=== PATIENT | female | born 1995 | race Hispanic/Latino ===

== ENCOUNTER 2016-09-09 19:56 | Inpatient (IN) | payer OTHER ==
[~2016-09-09] VITALS: Ht 167.6 cm; Wt 60.0 kg
[2016-09-09 20:02] VITALS: BP 136/86; PULSE 80; RESP 16; O2SAT 100
--- NOTE | 2016-09-09 22:22 | ED.REPORT ---
HPI-Psychiatric Illness Date of Service September 09, 2016 ED Provider: Linus Carreno MD Patient is a 21 year old female who is 8 weeks who presents to the ED complaining of depression and feeling like she cannot cope with her current situation. She reports she turned to alcohol and marijuana for two years but now that she is , and she has discontinued the alcohol, she does not know how to cope. She is afraid that she might hurt herself or commit suicide ( without a plan) if things continue. She reports she recently thought about driving her car into incoming traffic with her 2 year old in the car. Patient feels like her depression started after she had an about a year ago. She denies hallucinations, homicidal ideations, insomnia, or any other symptoms. She reports she has lost 30 lbs in the past couple of months by not eating. She recently lost her job. She reports she has tried to reach out for help at the [facility] and [facility] but has not had any success. They did not want to prescribe her medication due to her . She saw a provider at [facility] recently who was not helpful to her. She was also seen by [place] psychiatrist today who prescribed things such as laughing regularly and a healthy diet. She found these recommendations extremely frustrating and unhelpful and exacerbated her feelings of self-harm. She reports having been in foster care extensively is a 2-year-old and then finally adopted as a 3-year-old. She says in the past couple of years she has come across documentation that she was given up for adoption because her mother did not want her there she kept 3 other siblings. Nursing Notes Stated Complaint: SELF HARM CONCERNS Chief Complaint: Psychiatric Complaint Nursing Notes Reviewed: Yes Allergies: Coded Allergies: No Known Allergies (Unverified , 09/09/16) General Time Seen by MD: 22:21 Chief Complaint Depressed Hx Obtained From: Patient Arrived By: Walk-in Onset Occurred: More than a week ago... (1 month) Similar Sx Previous: Yes Risk-Psychiatric Illness Suicide Risk Stratification Suicide Risk Factors - Adult: : Alcohol use: Substance abuseNo: Prior psych admission RF Statements: Risk factors reviewed Past Medical History Past Medical History Healthy Denies: Asthma, Diabetes mellitus, Hypertension Past Surgical History Denies Family History Family hx of bipolar disorder Smoking History Unknown if Ever Smoker Social History Was using thc and alcohol daily before finding out she was . Adopted at age 3. Previously in the [place]. is also in [employer]. Drug Use: THC Other Social History: Good social support, Lives with children Ambulatory Status Independent Review of Systems Review of Systems Note: +recent weight loss Psychiatric: Reports: Depression, Suicidal ideation, Denies: Hallucinations, auditory, Hallucinations, visual, Homicidal ideation , Insomnia Complete sys rev & neg: except as marked. Physical Exam Initial Vital Signs Vital Signs (First) Date Time Temp Pulse Resp B/P Pulse Ox O2 Delivery O2 Flow Rate FiO2 09/09/16 20:02 36.6 80 16 136/86 100 Room Air Initial VS: Reviewed, Vital signs normal Head / Eyes: Atraumatic, Normocephalic Neck: Full range of motion Respiratory: Breath sounds normal, Clear to auscultation, No respiratory distress Cardiovascular: Regular rate & rhythm, Heart sounds normal Abdomen / GI: Soft, Non-tender Skin: Warm, Dry General/Constitutional: Awake, Alert, Well developed, Cooperative Neurologic: Oriented X3, Speech NL Psychiatric: Affect NL, Not homicidal, No hallucinations, Cognitive function NL , Judgment/insight NL, Thought content NL Abnormal Mood/Affect: Positive: Depressed, Hopeless Abnormal Thinking / Perception: Positive: Suicidal, no plan Re-Eval/Medical Decision Med Decision/Clinical Course I am very concerned about this young woman. Though she has no concrete plan for suicide, I am concerned about her impulsiveness and desperateness and hopelessness. I believe that inpatient hospitalization is appropriate for this young woman to get her on the right track and save her life. Re-Evaluation/Progress : Time of Eval: 23:34 Re-Evaluation/Progress Note: Discussed plan to keep overnight and see psychiatrist in the morning. Patient understands and agrees with plan. All questions addressed at this time. Consultation : Call Returned at: 23:16 Note: Care Center is at capacity. Counseled Regarding: Diagnosis, Other (Hold overnight ) Discharge & Departure Shift Change Sign-Out Patient Care Transferred: Yes Discussed Complaint(s): Yes Additonal Information: Transfer of care to Dr. Beckwith at 0000. Impression: Primary Impression: Depression with suicidal ideation Discharge Condition All VS Reviewed: Yes Condition: Stable Referrals: LISANDRA DIAZ (PCP) Care Transferred to: To Dr. Beckwith. Care Transferred at: 00:00 Scribe Attestation Portions of this note were transcribed by Dawit Guerrero. I, Dr. Carreno personally performed the history, physical exam and medical decision-making; I reviewed and confirmed the accuracy of the information in the transcribed note. Signed by: Dawit Guerrero 09/09/16, 7041 copies to: [facility] Linus Chao MD September 09, 2016 22:22 DAWIT GUERRERO September 09, 2016 22:29
[2016-09-10 00:26] LABS: BASOPHILS % (AUTO) 0.2 % (0-3); EOSINOPHILS % (AUTO) 0.5 % (0-5); MONOCYTES % (AUTO) 6.7 % (4-12); Mean Corpuscular Hemoglobin 27.8 pg (27.0-35.0); Mean Corpuscular Volume 82.6 fL (81-100); NEUTROPHILS % (AUTO) 68.2 % (40-74); Platelet Count 352 bil/L (150-400)
[2016-09-10 01:01] VITALS: BP 129/79; PULSE 76; RESP 16; O2SAT 100
[2016-09-10 06:48] VITALS: BP 113/62; PULSE 73; RESP 16; O2SAT 100
[2016-09-10 11:00] VITALS: BP 111/71; PULSE 81; RESP 20; O2SAT 98
[2016-09-10 14:20] VITALS: BP 119/69; PULSE 69; RESP 17
--- NOTE | 2016-09-10 16:57 | NUR ---
Nursing admission: Isabella arrived on unit in W/C at 1245 accompanied by transport staff. She is voluntary admission and signed all forms. Ambulatory. Cooperative with admission interview. Depression 09/04. Anxiety "a little". Denied suicidal ideation at 1300 even though she admitted that at time of coming to the ED she felt overwhelmed by theses thoughts as the only way to deal with her stress. Goal for admission : "To find ways to cope so I won't turn to suicide." Feels that although she has sought treatment from the [facility] and another provider recently, she has not received thehelp she needs. STates she neds to deal with childhood issues as well as current stressors: financial problems. job loss, and current which brings up feelings related to an elective termination about a year ago. In High school had some cutting behaviors. Biological family history of mental illness (she was adopted). DEnied any pain or dischomfort of physical problems. Is 8 weeks . First inpatient MH experience. States no meds except zofran, B6, and vitamin. Ate lunch. Worked on crafts in Dining room. Interacted verbally with peers. Plan: [place] to unit. Encourage participation in unit activities. Observe for safety. Addendum: 09/10/16 at 1825 by JHON DOOLEY RN Nursing: Pt met with doctor and was informed of treatment plan. Is engaged in filling out forms in folder and interactive with peers. Pt signed consent to take meds as ordered. Sertraline po administered at 1820. Dr. Garcias informed of dose administered at 1825. P: Assess pt for effects of new med and for participation in unit activities.
[2016-09-10] MEDS ORDERED: Magnesium Hydroxide 10 mL Oral Concentration PO PRN (17:20)
[2016-09-10] MEDS ORDERED: Alum-Mag Hydrox-Simeth 30 mL Suspension PO PRN (17:20)
[2016-09-10] MEDS ORDERED: Benzocaine-Menthol Lozenge 2/Pkg PO PRN (17:20)
--- NOTE | 2016-09-10 19:02 | NUR ---
Obs Dayshift Pt participated in admission, engages well w/ peers, participates in groups. Pt was Oriented, polite, appropriate. Good ADL's, Good meals
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
--- NOTE | 2016-09-11 05:34 | NUR ---
Nursing Noc s/o- has appeared to sleep after 2244 during q 15 minute assessments. a- no apparent distress. p- monitor behavior/emotional state, quality, times and amount of sleep, use and effect of medication.
[2016-09-11 13:13] VITALS: BP 118/72; PULSE 79; RESP 18
--- NOTE | 2016-09-11 13:19 | NUR ---
Nursing Dayshift: S: "My mind was racing with all of these different outcomes to my problems. I couldn't think straight anymore. I didn't want to kill myself. That's why I am here. I was afraid I would kill myself." O: Patient discussing her thought patterns prior to admission. 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 Has been bright and cheery with staff and peers. Eating well at meals. Attending unit activities. Anxiety a 08/05. Depression a -06/07. Denies harmful thoughts and hallucinations. A: Talkative. Improving. P: CPOC. Monitor mood and behavior.
--- NOTE | 2016-09-11 19:34 | NUR ---
Wet Pan Operator/Counselor: S: "I have a smile on my face but I'm sad inside." O: Patient slept 7.25 hours last night as per staff. She denies S/I and H/I. She denies auditory and visual hallucinations. Depression is 8/10 and anxiety is 8/10. A: Patient is cooperative, anxious, tearful at times, overwhelmed, sad. P: Follow the care plan, coordinate with out-patient providers.
--- NOTE | 2016-09-11 21:24 | PCM.PNPSY ---
Subjective Date of Service September 11, 2016 Subjective The patient reports that the CBT worksheets were very helpful in helping her to see her negative thought processes. She reiterated that she did not feel safe enough to rely on worksheets alone and continued to assert the need for antidepressant therapy. Patient reports that family/friends have been supportive. No side effects Sleep:7.25+, very well Appetite: Okay Suicidal and homicidal ideation: denies Auditory hallucinations: denies Visual hallucinations: denies Other Psychotic Symptoms: denies Anxiety: 810 Depression: good/10 to 8-9/10 Current Medications Current Medications Ondansetron HCl 4 mg ONCE ONCE PO Last administered on 09/10/16 08:36; Admin Dose 4 MG; Start 09/10/16 at 08:35; Stop 09/10/16 at 08:36; Status DC Sertraline HCl 25 mg DAILY PO Last administered on 09/11/16 08:43; Admin Dose 25 MG; Start 09/10/16 at 17:20; Stop 09/11/16 at 17:10; Status DC Sertraline HCl 25 mg ONCE ONCE PO Last administered on 09/11/16 17:39; Admin Dose 25 MG; Start 09/11/16 at 17:10; Stop 09/11/16 at 17:14; Status DC Mental Status Exam Appearance: Neat/well groomed Attitude: Pleasant, Cooperative Behavior: Tearful (would appear euthymic then become tearful when discussing inability to cope, suicidal thoughts) Affect: Well Modulated/Appropriate Mood: Depressed Thought Process/Associations: Logical/Sequential, Goal Directed Speech Production: Normal Speech Rate: Normal Speech Articulation: Normal Thought Content: Negativistic, Perseveration Danger to Others: None Hallucinations: Auditory (Denies), Visual (Denies) Consciousness: Alert Orientation: Person, Place ([facility]), Date (September 10, 2016), Situation Memory: Grossly Intact Estimate Intellectual Function: Average Basis for IQ estimate: Awareness current events, Word use/vocabulary, Educational history, Employment history Attention/Concentration & Cogn: Intact Cognitive Testing Method: Abstract Reasoning during interview, Proverb interpretation, Spelling forward & backward Insight: Good Judgement: Good Result Diagram: 09/10/16 0020 09/10/16 0020 Mental Health Plan Patient is 21 year old female with history of chronic depression, more days than not, for many years, reportedly since childhood. She reports depersonalization at times. Although she presents as happy, she states, the bigger I smiled, the worse I'm feeling. She reports decreased appetite which eventually resulted in anorexia, insomnia, low self-esteem, poor concentration and hopelessness. This symptom cluster is consistent with Persistent Depressive Disorder (Dysthymia). She does not appear to have met criteria for major depression or bipolar disorder. The patient has had worsening suicidal thoughts and inability to cope and is concerned for her safety. We discussed that antidepressants are generally contraindicated in unless there is a danger to the mother or fetus and that psychotherapy/CBT is generally considered first line. Unfortunately, the patient had attempted to obtain help but was unable to as outlined in HPI. We discussed the risks and benefits and the patient was presented with CDC guidelines regarding antidepressant use in as well as product information on sertraline as the preferred agent associated with the fewest adverse issues noted in the literature. The patient felt that the risk was greater to not treat than to treat her depression with medication. We also discussed CBT and the patient was given a thought log and instructed on its use and given 2 examples from her own history. The patient reports that she found the CBT worksheets helpful. So far, no side effects from sertraline. If continues without side effects, patient requests discharge tomorrow. [place] AXIS I: Persistent Depressive Disorder Alcohol Use Disorder, in partial remission Marijuana Use Disorder, in partial remission AXIS II: Defer AXIS III: 8-9 weeks . AXIS IV: , marital discord, financial issues. AXIS V: GAF 35 Medications 1. The patient is admitted to the inpatient unit and will be provided a safe and secure environment. 2. The patient is denying current active suicidality and is not in need of a one-to-one at this time. 3. The patient is encouraged to participate with group and milieu activities. 4. The patient will be seen by the treatment team on a daily basis to assess symptoms, side effects and response to treatment. 5. Sertraline 50mg daily. 6. Explore additional resources in the community for potential CBT continuation. 7. Anticipated length of stay is 2-3 days. Prasanna Garcias MD September 11, 2016 21:24 Precautions Ordered: [ ] 1:1, [ ] Sharps, [ ] Assault, [ ] Elopement Treatment Plan for Suicidal Behavior: Other (Specify): Prasanna Garcias MD September 11, 2016 21:24
--- NOTE | 2016-09-11 22:54 | NUR ---
NURS Note Evening S/O "Can I ask . . . is [fellow pt] okay?" Pt appears cheerful and energetic. Pt visited with friends and played music with peers. Interacting appropriately with peers. Denies MARY ELIZABETH. Denies ZOE TREVIZO. A Pleasant, cooperative, and appropriate. P Continue with plan of care.
--- NOTE | 2016-09-12 04:39 | NUR ---
nursing, nights, 11-7 s/o- has appeared to sleep after midnight during q 15 minute assessments. a- no apparent distress. p- monitor behavior/emotional state, quality, times and amount of sleep, use and effect of medication. dylan
[2016-09-12 09:10] VITALS: BP 109/80; PULSE 85; RESP 18
--- NOTE | 2016-09-12 13:57 | NUR ---
Nursing; DAy shift: 0700 through 151. I feel so much better after I spoke with the doctor yesterday. Isabella has been bubbly on the unit this shift States her ronaldo name IS Bubbly. Interacting with peers appropriately. Participating in activities on unit. No complaints. States she feels 95% improved since admission. Is reviewing her written materials and states that her journaling activity is helpful to combat depressed feelings. Anticipating discharge at 1700. Denies any intent to self harm. Is future oriented All outcomes met. P: Prepare for discharge later. Addendum: 09/12/16 at 1404 by JHON DOOLEY RN Amended: Links added.
[2016-09-12] MEDS ORDERED: SERT50TA9 PO (14:52)
--- NOTE | 2016-09-12 14:57 | PCM.DIMED ---
Discharge Instructions Date of Service September 12, 2016 Dates of Hospitalization September 10, 2016 at 12:22 Discharge Diagnosis Discharge Diagnosis AXIS I: Persistent Depressive Disorder Alcohol Use Disorder, in partial remission Marijuana Use Disorder, in partial remission AXIS II: Defer AXIS III: 8-9 weeks . AXIS IV: , marital discord, financial issues. AXIS V: GAF 50 Medication Instructions Continue to use CBT Thought Record worksheets. Test Results CBC Test 09/10/16 00:20 White Blood Count 11.5th/mm3 (3.8-10.1) Red Blood Count 4.13mil/mm3 (3.90-5.20) Hemoglobin 11.5g/dL (12.0-15.6) Hematocrit 34.1% (35.0-46.0) Mean Corpuscular Volume 82.6fL (81-100) Mean Corpuscular Hemoglobin 27.8pg (27.0-35.0) Mean Corpuscular Hemoglobin Concent 33.7% (32.0-37.0) Red Cell Distribution Width 12.7% (12.3-15.4) Platelet Count 352bil/L (150-400) Neutrophils (%) (Auto) 68.2% (40-74) Lymphocytes (%) (Auto) 24.3% (14-46) Monocytes (%) (Auto) 6.7% (4-12) Eosinophils (%) (Auto) 0.5% (0-5) Basophils (%) (Auto) 0.2% (0-3) CMP Test 09/10/16 00:20 Sodium Level 136mEq/L Potassium Level 4.4mEq/L Chloride Level 101mEq/L Carbon Dioxide Level 23mmol/L Blood Urea Nitrogen 8mg/dL Creatinine 0.45mg/dL Estimat Glomerular Filtration Rate 250mL/min Glucose Level 87mg/dL Calcium Level 9.5mg/dL Total Bilirubin 0.2mg/dL Aspartate Amino Transf (AST/SGOT) 14U/L Alanine Aminotransferase (ALT/SGPT) 8U/L Alkaline Phosphatase 40U/L Total Protein 6.9g/dL Albumin 4.0g/dL Thyroid Stimulating Hormone (TSH) 2.950uIU/mL Diet No restrictions Activity No restrictions Patient Instructions Should you have any thoughts of harming yourself or others, please call the crisis line, your provider, 911, or go to the nearest Emergency Department. Do not change or discontinue your medications without discussing with your provider. You have been given a prescription for 30 days' supply of your new medication Follow-up plan Primary Care Provider Dr. Aquino on 09/13/16 at 1:45pm [address] [facility] [address] Prasanna Garcias MD September 12, 2016 14:51
--- NOTE | 2016-09-12 17:13 | NUR ---
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 She denies S/I and H/I. She denies auditory and visual hallucinations. Depression is 3/10 and anxiety is "very low." Out-patient appointment: Dr. Aquino, psychiatrist, 09/13/16 at 1:45pm. A: Patient is cooperative, hopeful, pleasant, future oriented. P: Follow the care plan, coordinate with out-patient providers.
--- NOTE | 2016-09-12 17:40 | NUR ---
Nurses Note Discharge Patient discharged home with all her belongings,prescription faxed to her pharmacy,hard prescription with her along with her follow- up appointment in place. Patient was cheerful,animated and excited to return home without feelings of depression or self harm. Addendum: 09/12/16 at 1824 by NYLA JEONG RN Amended: Links added.
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
== END 2016-09-12 17:40 | disposition home or self-care (01) | DRG 781 ==
LOC: SED 19:56 → MHC 09-10 12:22
PROVIDERS: ADMIT Psychiatry & Neurology Psychiatry; ATTEND Psychiatry & Neurology Psychiatry
DX: O99.341 Other mental disorders complicating pregnancy, first trimester (principal); R45.851 Suicidal ideations; F34.1 Dysthymic disorder; Z3A.08 8 weeks gestation of pregnancy